=== PATIENT | male | born 1945 | race Caucasian/White ===

== ENCOUNTER → 2021-02-27 | Outpatient (CLI) | payer MEDICARE, OTHER ==
--- NOTE | 2021-02-27 14:36 | KCIC ---
CT chest without contrast dated 02/27/2021. Comparison made to 2016. CLINICAL INDICATION: Follow-up lung nodule. TECHNIQUE: Contiguous axial imaging the chest performed without the administration of intravenous contrast. One or more of the following individualized dose reduction techniques were utilized for this examinat ion: 1. Automated exposure control 2. Adjustment of the mA and/or kV according to patient size 3. Use of iterative reconstruction technique. FINDINGS: Heart size is upper limits of normal. No pericardial effusion. Extensive coronary calcifications. The re is also prominent mitral valve calcification. Ectasia of the ascending thoracic aorta measuring 3. 7 cm transverse. Borderline enlarged precarinal lymph node measuring 8 mm short axis. There is also borderline enlarge d left paratracheal lymph node, unchanged. Calcified left hilar lymph node. No axillary or supraclavi cular lymphadenopathy. Thyroid gland is unremarkable. Central airways are patent. Moderate emphysema. Irregular opacity at the left apex likely related to scarring, unchanged. There is also irregular nodular density in the superior segment of the right low er lobe on series 6 image 105 that measures about 1.3 cm, not definitely present on the prior study. There is mild bronchial wall thickening and bronchiectasis. No consolidation or pleural effusion. No additional pulmonary nodule or mass. There is some linear density in the lingula consistent with scar ring, unchanged. Limited images of the upper abdomen unremarkable. No acute bony abnormality. Multilevel spondylosis. IMPRESSION: 1. There is a somewhat vague irregular nodular density in the superior segment right lower lobe that is new from prior study, indeterminate. This could be inflammatory or neoplastic. Recommend a short-t erm follow-up exam in 2-3 months to ensure stability/resolution. 2. Additional smaller nodular densities bilaterally are unchanged. 3. Emphysema. 4. Coronary artery calcifications. Electronically signed by: Chad Barnard MD (02/27/2021 2:33 PM) [facility]
== END ==
LOC: KCIC CT 12:29
PROVIDERS: ATTEND Family Medicine
DX: R91.1 Solitary pulmonary nodule (principal); J43.9 Emphysema, unspecified; F17.200 Nicotine dependence, unspecified, uncomplicated
CPT/HCPCS: 71250

== ENCOUNTER → 2021-03-05 | Outpatient (CLI) | payer MEDICARE ==
--- NOTE | 2021-03-05 11:54 | RAD ---
EXAM: Chest, 2 views. HISTORY: Emphysema. COMPARISON: 02/27/2021 FINDINGS: 2 views of the chest are obtained. There is pulmonary emphysema. There are calcified granul omas. There is right basilar atelectasis or scarring. The heart is normal in size. There is no consol idation, pleural effusion or pneumothorax. IMPRESSION: 1. Emphysema with right basilar atelectasis or scarring. 2. Note is made that the nodular opacity within the right lower lobe demonstrated on the recent CT is not well seen radiographically. Please refer to the CT report for follow-up recommendations. Electronically signed by: Inga Wan MD (03/05/2021 11:51 AM) [id number]
== END ==
LOC: RAD 11:00
PROVIDERS: ATTEND Internal Medicine Pulmonary Disease
DX: J43.9 Emphysema, unspecified (principal); R91.1 Solitary pulmonary nodule
CPT/HCPCS: 71046

== ENCOUNTER → 2021-06-10 | Outpatient (CLI) | payer MEDICARE, OTHER ==
--- NOTE | 2021-06-10 10:26 | KCIC ---
EXAMINATION: CT THORAX WO (CT CHEST WITHOUT IV CONTRAST) CLINICAL HISTORY: Follow up lung nodule. Prior smoker, history of COPD. Technique: Spiral CT acquisition of the chest from the thoracic inlet to the upper abdomen without co ntrast. CT Dose Reduction Employed: One or more of the following individualized dose reduction techniques wer e utilized for this examination: 1. Automated exposure control 2. Adjustment of the mA and/or kV ac cording to patient size 3. Use of iterative reconstruction technique. Comparison: 02/27/2021, 10/31/2016 FINDINGS: Lung Parenchyma, Pleura, and Airways: No new or suspicious pulmonary nodule. Somewhat nodular subpleu ral opacity in the anterior medial right middle lobe (series 6 image 154), essentially unchanged and likely benign given duration of stability. Asymmetrically prominent focal reticular opacities in the posterior superior right lower lobe and left apex, nonspecific but similar to prior study. Moderate e mphysematous changes and subpleural reticular changes, greatest in the upper lobes. Scattered curvili near subsegmental atelectasis and/or scarring bilaterally. No pleural effusion. Mild increased densit y in the left posterolateral aspect of the distal trachea, similar to slightly more pronounced compar ed to most recent prior study. This is nonspecific and may represent focal accumulation of secretions . Mild bronchiectasis and diffuse bronchial wall thickening. Lower Neck, Mediastinum, and Heart: Visualized thyroid gland within normal limits. Borderline enlarge d precarinal lymph node measuring up to 8 mm in short axis an additional prominent but nonenlarged me diastinal lymph nodes, similar to prior study. Calcified left hilar lymph nodes, likely related to ol d granulomatous disease. Main pulmonary artery normal in caliber. Decreased caliber of the ascending aorta measuring up to 3.2 cm, previously 3.7 cm. Moderate atherosclerotic ossification of the aorta a nd arch vessels. Extensive coronary atherosclerotic calcification, incompletely evaluated. Calcified mitral annulus. Normal heart size. Bones and Soft Tissues: Multilevel degenerative changes of the thoracic spine. Upper Abdomen: Punctate calcifications in the spleen and liver, likely related to old granulomatous d isease. IMPRESSION: No evidence of new or suspicious pulmonary nodule. Nonspecific focal reticular opacities in the superior right lower lobe and left apex, similar to prio r study. Mild increased density in the left posterolateral aspect of the distal trachea, similar to slightly m ore pronounced compared to prior studies. This is nonspecific but may represent focally cannulated se cretions. Additional nonacute findings as described. Electronically signed by: Linus Villanueva DO (06/10/2021 10:23 AM) [facility]
== END ==
LOC: KCIC CT 09:25
PROVIDERS: ATTEND Internal Medicine Pulmonary Disease
DX: J43.9 Emphysema, unspecified (principal); J47.9 Bronchiectasis, uncomplicated; I70.0 Atherosclerosis of aorta; D73.89 Other diseases of spleen; R93.89 Abnormal findings on diagnostic imaging of other specified body structures; I25.10 Atherosclerotic heart disease of native coronary artery without angina pectoris; M47.814 Spondylosis without myelopathy or radiculopathy, thoracic region
CPT/HCPCS: 71250